=== PATIENT | female | born 1985 ===

== ENCOUNTER 2020-07-25 13:13 | Emergency (ER) | payer MEDICAID ==
[~2020-07-25] VITALS: Ht 137.2 cm; Wt 55.5 kg
[2020-07-25 13:47] VITALS: BP 146/58
--- NOTE | 2020-07-25 13:53 | NUR ---
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
== END 2020-07-25 14:40 | disposition home or self-care (01) ==
LOC: ED 14:33
DX: Z46.4 Encounter for fitting and adjustment of orthodontic device (principal)
CPT/HCPCS: 99281